=== PATIENT | female | born 1965 | race Asian ===

== ENCOUNTER 2019-11-08 09:19 | Emergency (ER) | payer SELFPAY ==
[~2019-11-08] VITALS: Ht 149.9 cm; Wt 49.9 kg
[2019-11-08 09:26] VITALS: BP 133/51
== END 2019-11-08 10:10 | disposition home or self-care (01) ==
LOC: ER 09:19
DX: J20.9 Acute bronchitis, unspecified (principal)
CPT/HCPCS: 71046